=== PATIENT | male | born 1995 | race Hispanic/Latino ===

== ENCOUNTER 2024-01-09 10:20 | Emergency (ER) | payer OTHER, SELFPAY ==
[2024-01-09 10:21] VITALS: BP 115/71; PULSE 62; RESP 14; TEMP 36.2; O2SAT 98; BMI 24.7
--- NOTE | 2024-01-09 10:46 | ED.VIS.GI ---
HPI HPI - GI History of Present Illness Chief Complaint: Abd Pain Informant: patient Narrative Narrative: 28-year-old male presenting to the emergency room with vomiting diarrhea. Use of third-green party appraiser auditor was used during the patient's ED course. Patient states that last Tuesday he began to have vomiting and diarrhea. He states he is now having diarrhea only at night and vomiting in the morning. He states but he has been able to eat okay. No reported fevers. He has been taking Pepto-Bismol and notes that his diarrhea seems black now. He denies any significant abdominal pain but notes persistent nausea. No rashes. No other medications. No prior abdominal surgeries. PFSH PFSH Medical History no medical history Home Medications ?Medication ?Instructions ?Recorded ?Last Taken ?Type NK 01/09/24 Unknown History Allergy/AdvReac Type Severity Reaction Status Date / Time No Known Allergies Allergy Verified 01/09/24 10:22 Family History no significant family his Social History household members: family current occupational status: employed Smoking Status: Never smoker ROS ROS ED Constitutional Constitutional ED: Denies chills, fever(s) or weight loss Eyes Eyes: Denies change in vision or diplopia ENT ENT ED: Denies ear pain, rhinorrhea or sore throat Cardiovascular Cardiovascular: Denies chest pain, orthopnea, palpitations or racing heartbeat Respiratory/Chest Respiratory/Chest: Denies cough, dyspnea or orthopnea Gastrointestinal Gastrointestinal: Reports diarrhea, nausea and vomiting; Denies abdominal pain Genitourinary Genitourinary ED: Denies dysuria, hematuria or urinary frequency Musculoskeletal Musculoskeletal: Denies arthralgias or myalgias Integumentary Denies abscess or rash Neurologic Neurologic: Denies headache(s) or weakness Psychiatric Psychiatric: Denies anxiety, depression, suicidal ideation or suicidal thoughts Endocrine Endocrinology: Denies polydipsia, polyphagia or polyuria Allergic/Immunologic Allergic/Immunologic ED: Denies mouth swelling, tongue swelling or urticaria EXAM Physical Exam Const Vital Signs: 01/09/24 10:21 01/09/24 11:46 Temperature 97.2 F L 97.2 F L Temperature Source Temporal Pulse Rate 62 66 Respiratory Rate 14 14 Blood Pressure 115/71 112/78 Blood Pressure Mean 85 89 Pulse Ox 98 98 Oxygen Delivery Method Room Air Positive well nourished and well developed General Appearance ED: well developed HEENT Reports normocephalic, head/scalp atraumatic and moist mucous membranes Eyes PERRL and EOMs intact bilaterally Neck no lymphadenopathy, supple and no JVD Resp normal respiratory effort and clear to auscultation bilaterally Cardio regular rate, regular rhythm and no murmurs GI normal to inspection, nondistended, normoactive bowel sounds and non-tender Palpation: soft Back/Spine no CVA tenderness and normal ROM Extremity normal to inspection General Extremety ED: Negative for edema General Extremity: Negative for edema Neuro oriented x3 and CN's II-XII intact bilaterally Sensorium / Orientation: alert Motor Exam: strength 5/5 throughout Psych mental status grossly normal Mood & Affect: Negative for depressed or tearful Skin no rashes or lesions noted and no wounds MDM MDM MDM Narrative Medical decision making narrative: Differential diagnosis includes but not limited to upper GI bleed gastroenteritis dehydration electrolyte abnormality pancreatitis biliary disease colitis Basic blood work was obtained shows a white count of 5.5 hemoglobin 14.6 BMP liver and lipase within normal limits. Patient received a dose of Zofran. He is tolerating p.o. fluids. I think that the black stool that he is describing is related to his Pepto-Bismol use. Think clinically he appears well well-hydrated. I will write for some Zofran. Would asked that he follow-up 3 to 5 days if he is not improving return if worsening. History & Record Review Discussion w/independent historian: Patient Lab Data Attestation: I reviewed the patient's lab results. Labs: Laboratory Results - last 24 hr 01/09/24 10:46 WBC 5.5 RBC 4.89 Hgb 14.6 Hct 42.0 MCV 85.9 MCH 29.9 MCHC 34.8 RDW Std Deviation 36.1 RDW Coeff of Cherry 11.6 Plt Count 228 MPV 10.3 Immature Gran % (Auto) 0.400 Neut % (Auto) 65.4 Lymph % (Auto) 26.5 Hitchcock % (Auto) 7.1 Eos % (Auto) 0.2 Baso % (Auto) 0.4 Absolute Neuts (auto) 3.6 Absolute Lymphs (auto) 1.46 Nucleated RBC % 0 Sodium 139 Potassium 3.7 Chloride 104 Carbon Dioxide 29.0 Anion Gap 6 BUN 14 Creatinine 0.82 Estim Creat Clear Calc 93.16 Est GFR (MDRD) Af Amer 143 Est GFR (MDRD) Non-Af 118 BUN/Creatinine Ratio 17.2 Glucose 100 Calcium 9.3 Total Bilirubin 0.60 Direct Bilirubin 0.18 AST 16 ALT 38 Alkaline Phosphatase 94 Total Protein 7.6 Albumin 4.2 Globulin 3.4 Lipase 32 Discharge Plan Triage Chief Complaint: Abd Pain ED Provider: Gerardo Fontanez Dx/Rx/DC Orders Clinical Impression: Nausea, vomiting, and diarrhea Instructions: ED Vomit Diarrhea Nonspec Adult Prescriptions: No Action NK Primary Care Provider: Care Physician,No Primary Referrals: Master Bedoya MD [Med Staff - Auto Body Builder Apprentice] - As Needed (for primary care) Care Physician,No Primary [Primary Care Provider] - Print Language: Portuguese Disposition Disposition: Home, Self Care Discharge Date/Time: 01/09/24 11:46
[2024-01-09 10:55] LABS: Absolute Lymphocyte Count 1.46 X10^3/uL (0.83-4.51); Absolute Neutrophil Count 3.6 X10^3/uL (2.0-7.7); Basophil# 0.02 X10^3/uL; Basophil% 0.4 % (0-1); Eosinophil# 0.01 X10^3/uL; Eosinophils% 0.2 % (0-5); Hemoglobin 14.6 g/dL (13.0-16.5); Lymphocyte # 1.46 X10^3/ul (0.83-4.51); Lymphocyte % 26.5 % (19-41); Mean Corp Hgb Conc 34.8 g/dL (32-36); Mean Corpuscular Hgb 29.9 pg (27.0-32.0); Mean Corpuscular Volume 85.9 fL (80-94); Mean Platelet Vol. 10.3 fl (6.2-12.0); Monocyte# 0.39 X10^3/uL; Monocyte% 7.1 % (0-10); NRBC Flagged by Analyzer 0 % (0-5); Neutrophil # 3.61 X10^3/uL (2.7-7.7); Neutrophil % 65.4 % (47-70); Platelet Count 228 K/mm3 (150-450); RBC Distribution Width CV 11.6 % (11.6-14.6); RBC Distribution Width SD 36.1 fl (35.1-43.9); Red Blood Count 4.89 M/mm3 (4.6-6.2); White Blood Count 5.5 K/mm3 (4.4-11.0)
[2024-01-09] MEDS: Ondansetron 4 MG/2 ML Vial IV (10:59)
[2024-01-09 11:07] LABS: AST(SGOT) 16 U/L (15-37); Alanine Aminotransfer ALT/SGPT 38 U/L (16-61); Albumin, Serum 4.2 g/dL (3.2-5.0); Alkaline Phosphatase 94 U/L (45-117); Anion Gap 6 (5-15); BUN 14 mg/dL (7-18); BUN/Creat Ratio 17.2 RATIO (10-20); Bilirubin, Direct 0.18 mg/dL (0.00-0.30); Calcium,Total 9.3 mg/dL (8.5-10.1); Chloride 104 mmol/L (98-107); Creatinine, Serum 0.82 mg/dL (0.70-1.30); EST Glomerular Filtration Rate 118 mL/min (>60); Est Glom Filt Rate - Afr Amer 143 mL/min (>60); Estimated Creatinine Clearance 93.16 ml/min; Globulin 3.4 g/dL (2.2-4.2); Glucose 100 mg/dL (74-106); Lipase 32 U/L (13-75); Potassium 3.7 mmol/L (3.5-5.1); Protein, Total 7.6 g/dL (6.4-8.2); Sodium Level 139 mmol/L (136-145)
[2024-01-09 11:46] VITALS: BP 112/78; PULSE 66; RESP 14; TEMP 36.2; O2SAT 98
== END 2024-01-09 11:46 | disposition home or self-care (01) ==
PROVIDERS: Emergency Provider Emergency Medicine; Visit Provider Emergency Medicine
DX: R11.2 Nausea with vomiting, unspecified (principal); R19.7 Diarrhea, unspecified
CPT/HCPCS: 80048; 80076; 83690; 85025; 96374; 99283; A4216; J2405